=== PATIENT | male | born 1940 | race Caucasian/White ===

== ENCOUNTER 2024-03-25 04:09 | Inpatient (IN) | payer OTHER ==
[2024-03-24 11:27] VITALS: BMI 22.2
[2024-03-25] MEDS ORDERED: ceFAZolin SODIUM 1 GM VIAL ONE ×2 (08:00→12:19)
[2024-03-25] MEDS ORDERED: PROPOFOL 20 ML ONE (08:00)
[2024-03-25] MEDS ORDERED: DEXAMETHASONE SOD PHOSPHATE 4 MG/1 ML VIAL ONE (08:00)
[2024-03-25] MEDS ORDERED: LIDOCAINE HCL/PF 2% SDV 5ML VIAL ONE (08:00)
[2024-03-25] MEDS ORDERED: SUGAMMADEX SODIUM 200 MG/2 ML VIAL ONE (08:00)
[2024-03-25] MEDS ORDERED: ONDANSETRON 4 MG/2 ML VIAL ONE (08:00)
[2024-03-25] MEDS ORDERED: ROCURONIUM BROMIDE 50 MG/5 ML SYRINGE ONE ×2 (08:00→09:16)
[2024-03-25] MEDS ORDERED: ACETAMINOPHEN INJECTION 100 ML ONE (08:01)
[2024-03-25] MEDS ORDERED: MIDAZOLAM HCL 2 MG/2 ML SINGLE DOSE VIAL ONE (08:01)
[2024-03-25] MEDS ORDERED: SEVOFLURANE 250 ML BTL ONE (08:01)
[2024-03-25] MEDS ORDERED: HYDROmorphone HCl 2 MG/ML VIAL ONE (08:01)
[2024-03-25] MEDS ORDERED: oxyCODONE HCL 5 MG TABLET PO PRN ×2 (08:05)
[2024-03-25] MEDS ORDERED: ONDANSETRON 4 MG/2 ML VIAL IVPUSH PRN ×2 (08:05→12:55)
[2024-03-25] MEDS ORDERED: LACTATED RINGERS SOLUTION 1,000 ML IV SCH (08:15)
[2024-03-25] MEDS: ceFAZolin SODIUM 1 GM VIAL IVPB ONE ×2 (08:32→12:20)
[2024-03-25] MEDS ORDERED: BUPIVACAINE HCL/PF 0.25% (2.5MG/ML) 10 ML VIAL ONE (08:59)
[2024-03-25] MEDS: BUPIVACAINE HCL/PF 0.25% (2.5MG/ML) 10 ML VIAL IJ ONE ×2 (09:04→12:34)
[2024-03-25] MEDS ORDERED: KETOROLAC TROMETHAMINE 30 MG/1 ML VIAL ONE (11:31)
[2024-03-25] MEDS ORDERED: ACETAMINOPHEN 1000 MG/100 ML BAG IVPB PRN (14:30)
[2024-03-25] MEDS: ACETAMINOPHEN 325 MG TABLET (FP) PO SCH (14:37)
[2024-03-25 16:58] VITALS: RESP 20
[2024-03-25] MEDS: LACTATED RINGERS SOLUTION 1,000 ML/1,000 ML INFUS.BAG IV SCH (18:00)
[2024-03-26] MEDS: LEVOTHYROXINE NA 25 MCG TABLET (FP) PO SCH (06:07)
[2024-03-26 10:00] LABS: HEMATOCRIT 38.3 % (35.4-49); HEMOGLOBIN 13.1 GM/dL (11.7-16.9); MCH 32.7 pg (25.7-33.7); MCHC 34.1 g/dl (32.0-35.9); MEAN CELL VOLUME 95.9 fl (80-96); MEAN PLT VOLUME 8.9 fl (7.5-11.1); PLATELET COUNT 124 10^3/uL (134-434); RDW 13.7 % (11.9-15.9); WHITE BLOOD COUNT 8.8 K/mm3 (4.0-10.0)
[2024-03-26 10:03] VITALS: BP 95/50; PULSE 50; TEMP 97.8
[2024-03-26] MEDS: ATORVASTATIN CA 10 MG TABLET (FP) PO SCH (10:04)
[2024-03-26] MEDS: ASPIRIN COATED 81 MG TABLET.EC PO SCH (10:04)
[2024-03-26 10:11] LABS: POTASSIUM 4.2 mmol/L (3.5-5.1)
[2024-03-26 10:15] LABS: CALCIUM 8.4 mg/dL (8.5-10.1)
[2024-03-26 10:16] LABS: BLOOD UREA NITROGEN 17.8 mg/dL (7-18)
[2024-03-26 10:19] LABS: CREATININE 0.9 mg/dL (0.55-1.3)
== END 2024-03-26 11:42 | disposition home or self-care (01) | DRG 352 ==
LOC: J2C 04:09 → EDSTATUS 12:00 → J2C 14:16 → J8W 14:33
PROVIDERS: ADMIT Surgery; ATTEND Nurse Practitioner Family
PROC: 8E0W4CZ Robotic Assisted Procedure of Trunk Region, Percutaneous Endoscopic Approach (ICD-10-PCS; 2024-03-25)
PROC: 0YU64JZ Supplement Left Inguinal Region with Synthetic Substitute, Percutaneous Endoscopic Approach (ICD-10-PCS; principal; 2024-03-25 08:00)
DX: K40.90 Unilateral inguinal hernia, without obstruction or gangrene, not specified as recurrent (principal); E03.9 Hypothyroidism, unspecified; E78.5 Hyperlipidemia, unspecified
CPT/HCPCS: 36415; 80048; 85027; 94760; 97116-GP; 97161-GP; C1781; J0131